=== PATIENT | female | born 1955 | race Caucasian/White ===

== ENCOUNTER 2019-08-27 10:25 | Emergency (ER) | payer BC, OTHER ==
[2019-08-27] MEDS ORDERED: Ketorolac 60 MG/2 ML SDV IM ONE (10:38)
[2019-08-27] MEDS ORDERED: traMADol 50 MG Tab PO ONE (10:38)
--- NOTE | 2019-08-27 11:05 | EDM.PDOC ---
ED HPI GENERAL MEDICAL PROBLEM - General Chief Complaint: Lower Extremity Injury/Pain Time Seen by Provider: 08/27/19 10:45 Source of Information: Reports: Patient History Limitations: Reports: No Limitations - History of Present Illness INITIAL COMMENTS - FREE TEXT/NARRATIVE: Patient presented to the ED because of Left knee,left leg and left shoulder pain. The pain is sharp7/10. Pain is 7/10 , she took miloxicam an dtylenol there is no without any relief. she denies any recent trauma or fall. Left Leg Pain Score (Numeric/FACES): 10 - Related Data Allergies Allergy/AdvReac Type Severity Reaction Status Date / Time pseudoephedrine Allergy Hallucinati Verified 08/27/19 10:40 [From Sudafed] ons Home Meds: Home Meds Acetaminophen [Tylenol Extra Strength] 1,000 mg PO QID 08/27/19 [History] Diclofenac Sodium [Voltaren 1% Gel] 1 dose TOP QID 08/27/19 [History] Gabapentin [Neurontin] 100 mg PO BID 08/27/19 [History] Ibuprofen 800 mg PO TID PRN #30 tablet 08/27/19 [Rx] Meloxicam 15 mg PO DAILY 08/27/19 [History] atorvaSTATin [Lipitor] 20 mg PO DAILY 08/27/19 [History] lisinopriL [Lisinopril] 10 mg PO DAILY 08/27/19 [History] metFORMIN [Glucophage XR] 500 mg PO BID 08/27/19 [History] traMADol [Ultram] 100 mg PO Q8H PRN #30 tab 08/27/19 [Rx] traMADol [Ultram] 100 mg PO Q8H PRN #30 tablet 08/27/19 [Rx] Social & Family History - Tobacco Use Smoking Status *Q: Never Smoker - Caffeine Use Caffeine Use: Reports: Soda - Recreational Drug Use Recreational Drug Use: No Review of Systems - Review of Systems Review Of Systems: See Below Constitutional: Reports: No Symptoms Ears: Reports: No Symptoms Nose: Reports: No Symptoms Mouth/Throat: Reports: No Symptoms Respiratory: Reports: No Symptoms Cardiovascular: Reports: No Symptoms GI/Abdominal: Reports: No Symptoms Musculoskeletal: Reports: Shoulder Pain Skin: Reports: No Symptoms ED EXAM, GENERAL - Physical Exam Exam: See Below Exam Limited By: No Limitations General Appearance: Alert, No Apparent Distress Eye Exam: Bilateral Eye: PERRL Ears: Normal External Exam, Normal Canal Nose: Normal Inspection, Normal Mucosa, No Blood Throat/Mouth: Normal Inspection, Normal Lips, Normal Teeth Head: Atraumatic, Normocephalic Neck: Normal Inspection, Supple, Non-Tender Respiratory/Chest: No Respiratory Distress, Lungs Clear, Normal Breath Sounds Cardiovascular: Normal Peripheral Pulses, Regular Rate, Rhythm, No Edema, No Gallop GI/Abdominal: Normal Bowel Sounds, Soft, Non-Tender, No Organomegaly Back Exam: Normal Inspection, Full Range of Motion Extremities: Other (tenderness over the left shoiulder,left knee) Course - Vital Signs Text/Narrative:: toradol 60 mg IM tramadol 100 mg po x1 Last Recorded V/S: Last Vital Signs Temp 36.7 C 08/27/19 10:40 Pulse 116 H 08/27/19 10:40 Resp 18 08/27/19 10:40 BP 121/82 08/27/19 10:40 Pulse Ox 99 08/27/19 10:40 - Orders/Labs/Meds Meds: Medications Discontinued Medications Generic Name Dose Route Start Last Admin Trade Name Freq PRN Reason Stop Dose Admin Ketorolac Tromethamine 60 mg 08/27/19 10:38 08/27/19 11:09 Toradol IM 08/27/19 10:39 60 mg ONETIME ONE Administration Tramadol HCl 100 mg 08/27/19 10:38 08/27/19 11:09 Ultram PO 08/27/19 10:39 100 mg ONETIME ONE Administration Departure - Departure Time of Disposition: 11:00 Disposition: Home, Self-Care 01 Condition: Good Clinical Impression: DJD (degenerative joint disease) - Discharge Information Prescriptions: Ibuprofen 800 mg PO TID PRN #30 tablet PRN Reason: Pain traMADol [Ultram] 100 mg PO Q8H PRN #30 tab PRN Reason: Pain traMADol [Ultram] 100 mg PO Q8H PRN #30 tablet PRN Reason: Pain Instructions: Arthritis Referrals: PCP,None [Ordering Only Provider] - Forms: ED Department Discharge Additional Instructions: please read discharge instructions on arthritis/DJD take tramadol 100 mg and Ibuprofen 800 mg every 8 hours as needed for pain follow up as needed Sepsis Event Note - Evaluation Sepsis Screening Result: No Definite Risk - Focused Exam Date Exam was Performed: 08/28/19 Time Exam was Performed: 17:41
== END 2019-08-27 11:38 | disposition home or self-care (01) ==
LOC: FB.ED 10:25
DX: M17.12 Unilateral primary osteoarthritis, left knee (principal); M19.012 Primary osteoarthritis, left shoulder; Z79.899 Other long term (current) drug therapy; Z88.8 Allergy status to other drugs, medicaments and biological substances
CPT/HCPCS: 96372; 99283; A9270; J1885

== ENCOUNTER 2021-03-02 08:16 | Day surgery (SDC) | payer MEDICARE, OTHER ==
[~2021-03-02 08:16] MED LIST: Lactated Ringers 1,000 ML IV SCH; Sodium Chloride 0.9% 10 ML Syringe FLUSH PRN; acetaZOLAMIDE 500 MG Cap.ER PO ONE
[2021-03-02] MEDS ORDERED: Ondansetron 4 MG/2 ML SDV IVPUSH ONE (08:17)
[2021-03-02] MEDS ORDERED: Midazolam 1 MG/ML 2 ML SDV IV ONE (08:17)
[2021-03-02] MEDS ORDERED: acetaZOLAMIDE 500 MG Cap.ER PO ONE (11:45)
--- NOTE | 2021-03-02 12:53 | OR ---
DATE OF OPERATION: 03/02/2021 SURGEON: Kat Baxter MD PREOPERATIVE DIAGNOSIS: 1. Visually significant cataract, right eye. 2. Astigmatism, right eye. POSTOPERATIVE DIAGNOSIS: 1. Visually significant cataract, right eye. 2. Astigmatism, right eye. PROCEDURES PERFORMED: Phacoemulsification with Toric intraocular lens placement, right eye. ASSISTANTS: None. ANESTHESIA: Local with sedation. COMPLICATIONS: None. BLOOD LOSS: None. IMPLANTS: A pre-loaded [id number] 13.0 diopter lens implanted. CDE: 2.98. DESCRIPTION OF PROCEDURE: After risks and benefits were reviewed with the patient, consent was obtained in the preoperative area, and the operative eye was marked with a surgical pen. In the preoperative area, a pledget was used to dilate the pupil consisting of a mixture of phenylephrine 10%, cyclopentolate 2%, moxifloxacin 0.5%, and bupivacaine 0.75%. A Toric marker was used to edvin the 0 and 180 axis. The patient was taken to the operating room, where a time- out was performed, and the patient was placed under monitored anesthesia care. Topical tetracaine was used for anesthesia. The operative eye was prepped and draped for ophthalmic surgery, and the microscope was brought into position and focused. A paracentesis incision was made, followed by injection of preservative-free 1% lidocaine into the anterior chamber, followed by injection of Viscoat into the anterior chamber. A microkeratome blade was used to make a corneal limbal incision temporally. A cystotome was used to make the beginning of the capsulorrhexis, which was carried around 360 degrees in a curvilinear fashion using Utrata forceps. A Stratton cannula with BSS was used to hydrodissect and hydrodelineate the nucleus. The nucleus was removed in a divide and conquer manner using phacoemulsification. Irrigation and aspiration were used to remove the remaining cortical material. Provisc was used to inflate the capsular bag, and a pre-loaded [id number] 13.0 diopter lens, serial number [id number] was injected into the capsular bag. A Sinskey hook was used to position and center the lens and rotate it to the axis of astigmatism. Next, irrigation and aspiration was used to remove any remaining viscoelastic and cortical material from the anterior chamber. BSS on a cannula was used to inflate the anterior chamber and hydrate the wound. The wound was checked and found to be watertight. 1 mg of Moxifloxacin was injected into the anterior chamber. Drapes were removed and the eye was cleaned. A drop of brimonidine 0.2% and a drop of TobraDex was placed. The eye was shielded, and the patient was taken to the recovery room in stable condition. /[id number] REGAN/FIDEL
== END 2021-03-02 12:05 | disposition home or self-care (01) ==
LOC: FB.SDS 08:16
PROVIDERS: ATTEND Ophthalmology
DX: E11.36 Type 2 diabetes mellitus with diabetic cataract (principal); H25.813 Combined forms of age-related cataract, bilateral; H35.033 Hypertensive retinopathy, bilateral; H04.123 Dry eye syndrome of bilateral lacrimal glands; H52.13 Myopia, bilateral; H52.223 Regular astigmatism, bilateral; H52.201 Unspecified astigmatism, right eye; M81.0 Age-related osteoporosis without current pathological fracture; Z86.73 Personal history of transient ischemic attack (TIA), and cerebral infarction without residual deficits; F41.8 Other specified anxiety disorders; Z98.890 Other specified postprocedural states; Z79.899 Other long term (current) drug therapy; Z79.82 Long term (current) use of aspirin; Z88.8 Allergy status to other drugs, medicaments and biological substances
CPT/HCPCS: 00142-QZ; 82947; A9270-GY; J2250; J2405; J7120

== ENCOUNTER 2021-03-16 07:30 | Day surgery (SDC) | payer MEDICARE ==
[~2021-03-16 07:30] MED LIST changes: -Lactated Ringers 1,000 ML IV SCH; -acetaZOLAMIDE 500 MG Cap.ER PO ONE
[2021-03-16] MEDS ORDERED: Midazolam 1 MG/ML 2 ML SDV IV ONE (07:31)
[2021-03-16] MEDS ORDERED: Ondansetron 4 MG/2 ML SDV IVPUSH ONE (07:31)
[2021-03-16] MEDS: Lactated Ringers 1,000 ML IV SCH (08:32)
[2021-03-16] MEDS: acetaZOLAMIDE 500 MG Cap.ER PO ONE (09:50)
--- NOTE | 2021-03-16 12:42 | OR ---
DATE OF OPERATION: 03/16/2021 SURGEON: Kat Baxter MD PREOPERATIVE DIAGNOSES: 1. Visually significant cataract, left eye. 2. Severe astigmatism, left eye. POSTOPERATIVE DIAGNOSES: 1. Visually significant cataract, left eye. 2. Astigmatism, left eye. PROCEDURES PERFORMED: Phacoemulsification with Toric intraocular lens placement, left eye. ASSISTANTS: None. ANESTHESIA: Local with sedation. COMPLICATIONS: None. BLOOD LOSS: None. IMPLANTS: A preloaded [id number] 14.0 diopter lens implanted. CDE: 2.32. DESCRIPTION OF PROCEDURE: After risks and benefits were reviewed with the patient, consent was obtained in the preoperative area, and the operative eye was marked with a surgical pen. In the preoperative area, a pledget was used to dilate the pupil consisting of a mixture of phenylephrine 10%, cyclopentolate 2%, moxifloxacin 0.5%, and bupivacaine 0.75%. A Toric marker was used to edvin the 0 and 180 meridian while the patient was in seated position. The patient was taken to the operating room, where a time-out was performed, and the patient was placed under monitored anesthesia care. Topical tetracaine was used for anesthesia. The operative eye was prepped and draped for ophthalmic surgery, and the microscope was brought into position and focused. A paracentesis incision was made, followed by injection of preservative-free 1% lidocaine into the anterior chamber, followed by injection of Viscoat into the anterior chamber. A microkeratome blade was used to make a corneal limbal incision temporally. A cystotome was used to make the beginning of the capsulorrhexis, which was carried around 360 degrees in a curvilinear fashion using Utrata forceps. A Stratton cannula with BSS was used to hydrodissect and hydrodelineate the nucleus. The nucleus was removed in a divide and conquer manner using phacoemulsification. Irrigation and aspiration were used to remove the remaining cortical material. Provisc was used to inflate the capsular bag, and a pre-loaded [id number] 14.0 diopter lens, serial number [id number] was injected into the capsular bag. A Sinskey hook was used to position and center and rotate the lens to the axis of astigmatism. Next, irrigation and aspiration was used to remove any remaining viscoelastic and cortical material from the anterior chamber. BSS on a cannula was used to inflate the anterior chamber and hydrate the wound. The wound was checked and found to be watertight. 1 mg of Moxifloxacin was injected into the anterior chamber. Drapes were removed and the eye was cleaned. A drop of brimonidine 0.2% and a drop of TobraDex was placed. The eye was shielded, and the patient was taken to the recovery room in stable condition. /[id number] REGAN/FIDEL
== END 2021-03-16 10:18 | disposition home or self-care (01) ==
LOC: FB.SDS 07:30
PROVIDERS: ATTEND Ophthalmology
DX: E11.36 Type 2 diabetes mellitus with diabetic cataract (principal); H52.202 Unspecified astigmatism, left eye; F41.8 Other specified anxiety disorders; H25.813 Combined forms of age-related cataract, bilateral; H35.033 Hypertensive retinopathy, bilateral; H04.123 Dry eye syndrome of bilateral lacrimal glands; H52.13 Myopia, bilateral; H52.223 Regular astigmatism, bilateral; I10 Essential (primary) hypertension; K21.9 Gastro-esophageal reflux disease without esophagitis; M81.0 Age-related osteoporosis without current pathological fracture; Z86.73 Personal history of transient ischemic attack (TIA), and cerebral infarction without residual deficits; Z98.890 Other specified postprocedural states; Z79.899 Other long term (current) drug therapy; Z79.84 Long term (current) use of oral hypoglycemic drugs; Z88.8 Allergy status to other drugs, medicaments and biological substances
CPT/HCPCS: 00142-QZ; 82947; A9270-GY; J2250; J2405; J7120

== ENCOUNTER 2024-10-20 14:53 | Emergency (ER) | payer MEDICARE ==
[2024-10-20] MEDS: Sodium Chloride 0.9% 1,000 ML IV ONE (15:40)
[2024-10-20] MEDS ORDERED: Sodium Chloride 0.9% 10 ML Syringe FLUSH PRN (15:52)
[2024-10-20 16:02] LABS: BASOPHILS PERCENT AUTO 0.2 % (0.2-1.5); EOSINOPHILS PERCENT AUTO 0.1 % (0.6-8.1); HEMATOCRIT 37.1 % (34.2-48.2); HEMOGLOBIN 12.8 g/dL (11.4-15.5); LYMPHOCYTES PERCENT AUTO 9.9 % (18.4-52.1); MEAN CORPUSCULAR HEMOGLOBIN 29.7 pg (23.9-33.9); MEAN CORPUSCULAR HGB CONC 34.5 g/dL (31.9-34.8); MEAN CORPUSCULAR VOLUME 86.2 fL (76.7-100.5); MEAN PLATELET VOLUME 8.3 fL (7.1-12.4); MONOCYTES ABSOLUTE AUTO 0.4 x10-3/uL (0.3-1.0); MONOCYTES PERCENT AUTO 4.6 % (4.4-15.7); NEUTROPHILS ABSOLUTE AUTO 8.2 x10-3/uL (1.5-6.3); NEUTROPHILS PERCENT AUTO 85.2 % (30.8-76.2); PLATELET COUNT,PLT 273 x10(3)uL (151-488); RED BLOOD CELL COUNT 4.31 x10(6)uL (3.60-5.20); RED CELL DISTRIBUTION WIDTH 13.6 % (12.3-16.5); WHITE BLOOD CELL COUNT,WBC 9.7 x10-3/uL (3.0-10.3)
[2024-10-20 16:06] LABS: BLOOD UREA NITROGEN,BUN 27 mg/dL (7-18); BUN/CREATININE RATIO 22.5 (9-20); CALCIUM 9.7 mg/dL (8.6-10.2); CARBON DIOXIDE,CO2 24 mmol/L (21-32); CHLORIDE,CL 105 mmol/L (100-110); CREATININE 1.2 mg/dL (0.55-1.02); ESTIMATED GFR 49 mL/min (>60); GLUCOSE RANDOM 261 mg/dL (80-116); POTASSIUM,K 4.4 mmol/L (3.5-5.3); SODIUM,NA 139 mmol/L (135-145)
[2024-10-20 16:08] LABS: LIPASE 43 U/L (16-77)
[2024-10-20 16:10] LABS: C-REACTIVE PROTEIN < 0.50 mg/dL (<0.50)
[2024-10-20] MEDS: Ketorolac 15 MG/ML SDV IVPUSH ONE (16:10)
[2024-10-20 16:12] LABS: A/G RATIO 1.2; ALANINE AMINOTRANSFERASE,ALT 39 U/L (12-36); ALBUMIN 3.9 g/dL (3.2-4.6); ALKALINE PHOSPHATASE 74 IU/L (56-112); ASPARTATE AMNIOTRANSFERASE,AST 17 IU/L (5-25); BILIRUBIN TOTAL 0.3 mg/dL (0.1-1.3); PROTEIN TOTAL,TP 7.3 g/dL (6.0-8.0)
[2024-10-20] MEDS: Tamsulosin 0.4 MG Cap.ER PO ONE (17:37)
== END 2024-10-20 17:51 | disposition home or self-care (01) ==
LOC: FB.ED 14:53
DX: N13.2 Hydronephrosis with renal and ureteral calculous obstruction (principal); I10 Essential (primary) hypertension; E78.00 Pure hypercholesterolemia, unspecified; E11.9 Type 2 diabetes mellitus without complications; Z88.8 Allergy status to other drugs, medicaments and biological substances; Z79.84 Long term (current) use of oral hypoglycemic drugs; Z79.82 Long term (current) use of aspirin; Z79.899 Other long term (current) drug therapy
CPT/HCPCS: 74176; 80053; 83690; 85025; 86140; 96361; 96374; 99284; A9270; J1885; J7030